=== PATIENT | female | born 1990 | race Caucasian/White ===

== ENCOUNTER 2017-10-26 23:37 | Emergency (ER) | payer MEDICAID ==
[~2017-10-26] VITALS: Ht 175.3 cm; Wt 77.3 kg
[~2017-10-26 23:37] MED LIST: AMOXICILLIN 50500 MG PO; BUPROPRION; BUSPIRONE; CEPHALEXIN500 M1 PO; MOTRIN 800800 MG/TAB PO; NORCO 325 MG-51 TA1 PO; NORCO 325 MG-51 TAB PO; ORTHO TRI-CYCLE1 TA1 PO; PEN-VEE K500 MG PO; PERCOCET 325 MG1 TA2 PO; PRENATAL1 TA1 PO; XANAX0.5 MG PO
[2017-10-27 00:30] VITALS: BP 112/70
== END 2017-10-27 00:30 | disposition short-term general hospital (02) ==
LOC: ED 23:37
DX: O80 Encounter for full-term uncomplicated delivery (principal); Z3A.40 40 weeks gestation of pregnancy; Z37.0 Single live birth

== ENCOUNTER 2018-05-10 21:50 | Emergency (ER) | payer SELFPAY ==
[~2018-05-10] VITALS: Ht 177.8 cm; Wt 74.5 kg
[2018-05-10] MEDS ORDERED: SPRINTEC 35 MCG1 TAB PO (22:09)
[2018-05-10] MEDS ORDERED: ZOLOFT 50MG50 MG PO (22:10)
[2018-05-10 22:46] LABS: EOS # 0.2 (0.04-0.40); EOS % 2.7 % (1.0-5.0); HEMATOCRIT 38.3 % (37.0-47.0); HEMOGLOBIN 12.6 g/dL (12.5-16.0); LYMPH# 3.1 (1.50-4.00); MEAN CELL VOLUME 91 fl (78-100); MEAN CORPUSCULAR HEMOGLOBIN 30 pg (27-31); MEAN CORPUSCULAR HGB CONC 33 g/dL (33-37); MEAN PLATELET VOLUME 11.3 fl (7.4-10.4); MONO # 0.6 (0.20-0.80); PLATELET COUNT 217 K/mm3 (130-400); RED BLOOD COUNT 4.21 M/mm3 (4.10-5.30); RED CELL DISTRIBUTION WIDTH 13.9 % (11.5-14.5); WHITE BLOOD COUNT 7.9 K/mm3 (4.8-10.8)
[2018-05-10 22:52] LABS: BUN/CREATININE RATIO 14.4 (6.0-26.0); CALCIUM 8.5 mg/dL (8.4-10.2); POTASSIUM 4.1 mmol/L (3.6-5.0)
[2018-05-10 23:20] VITALS: BP 118/78
== END 2018-05-10 23:20 | disposition home or self-care (01) ==
LOC: ED 21:50
PROVIDERS: Family Medicine
DX: N92.0 Excessive and frequent menstruation with regular cycle (principal)

== ENCOUNTER 2018-07-08 13:18 | Emergency (ER) | payer SELFPAY ==
[~2018-07-08 13:18] MED LIST changes: +SPRINTEC 35 MCG1 TAB PO; +ZOLOFT 50MG50 MG PO
[2018-07-08 13:46] LABS: HEMATOCRIT 37.9 % (37.0-47.0); HEMOGLOBIN 12.7 g/dL (12.5-16.0); MEAN CELL VOLUME 90 fl (78-100); MEAN CORPUSCULAR HEMOGLOBIN 30 pg (27-31); MEAN CORPUSCULAR HGB CONC 34 g/dL (33-37); MEAN PLATELET VOLUME 10.8 fl (7.4-10.4); PLATELET COUNT 221 K/mm3 (130-400); RED BLOOD COUNT 4.23 M/mm3 (4.10-5.30); RED CELL DISTRIBUTION WIDTH 13.8 % (11.5-14.5); WHITE BLOOD COUNT 13.9 K/mm3 (4.8-10.8)
[2018-07-08 14:03] LABS: CALCIUM 8.2 mg/dL (8.4-10.2); POTASSIUM 3.5 mmol/L (3.6-5.0)
[2018-07-08 14:19] LABS: LYMPHOCYTE 5 % (20-51); MONOCYTE 3 % (3-10); NEUTROPHILS 92 % (42-75)
[2018-07-08] MEDS ORDERED: ALBUTEROL2.5 MG/3 M IH (15:02)
[2018-07-08] MEDS ORDERED: IBU800 M2 PO (15:02)
[2018-07-08] MEDS ORDERED: MUCINEX 60600 MG/TA1 PO (15:02)
[2018-07-08] MEDS ORDERED: LEVAQUIN 750MG750 M1 PO (15:02)
[2018-07-08 15:26] VITALS: BP 104/62
== END 2018-07-08 15:33 | disposition home or self-care (01) ==
LOC: ED 13:18
PROVIDERS: Physician Assistant
DX: J18.9 Pneumonia, unspecified organism (principal); F17.210 Nicotine dependence, cigarettes, uncomplicated
CPT/HCPCS: J7030

== ENCOUNTER 2019-03-26 15:44 | Emergency (ER) | payer SELFPAY ==
[~2019-03-26] VITALS: Ht 175.3 cm; Wt 75.0 kg
[~2019-03-26 15:44] MED LIST changes: +ALBUTEROL2.5 MG/3 M IH; +IBU800 M2 PO; +LEVAQUIN 750MG750 M1 PO; +MUCINEX 60600 MG/TA1 PO
[2019-03-26] MEDS ORDERED: AMOXIL500 M1 PO (16:15)
[2019-03-26 16:25] VITALS: BP 100/66
== END 2019-03-26 16:27 | disposition home or self-care (01) ==
LOC: ED 15:44
DX: K08.89 Other specified disorders of teeth and supporting structures (principal); F41.9 Anxiety disorder, unspecified; F32.9 Major depressive disorder, single episode, unspecified; F17.210 Nicotine dependence, cigarettes, uncomplicated

== ENCOUNTER 2019-05-03 10:28 | Emergency (ER) | payer SELFPAY ==
[~2019-05-03 10:28] MED LIST changes: +AMOXIL500 M1 PO
[2019-05-03 11:11] LABS: ALBUMIN 3.6 g/dL (3.5-5.0); EOS # 0.1 (0.04-0.40); EOS % 1.1 % (1.0-5.0); HEMATOCRIT 36.6 % (37.0-47.0); HEMOGLOBIN 12.1 g/dL (12.5-16.0); LYMPH# 2.2 (1.50-4.00); MEAN CELL VOLUME 91 fl (78-100); MEAN CORPUSCULAR HEMOGLOBIN 30 pg (27-31); MEAN CORPUSCULAR HGB CONC 33 g/dL (33-37); MEAN PLATELET VOLUME 10.8 fl (7.4-10.4); MONO # 0.7 (0.20-0.80); NEU # 8.7 (1.40-6.50); PLATELET COUNT 273 K/mm3 (130-400); POTASSIUM 3.9 mmol/L (3.5-5.1); RED BLOOD COUNT 4.01 M/mm3 (4.10-5.30); RED CELL DISTRIBUTION WIDTH 13.4 % (11.5-14.5); WHITE BLOOD COUNT 11.7 K/mm3 (4.8-10.8)
[2019-05-03 11:13] LABS: TOTAL PROTEIN 6.4 g/dL (6.4-8.3)
[2019-05-03 11:15] LABS: CALCIUM 8.8 mg/dL (8.3-10.5); TOTAL BILIRUBIN 0.4 mg/dL (0.2-1.2)
[2019-05-03 12:28] LABS: HEMATOCRIT 33.2 % (37.0-47.0); HEMOGLOBIN 10.7 g/dL (12.5-16.0)
[2019-05-03 12:41] VITALS: BP 102/68
== END 2019-05-03 12:54 | disposition short-term general hospital (02) ==
LOC: ED 10:28
PROVIDERS: Nurse Practitioner Primary Care
DX: O03.9 Complete or unspecified spontaneous abortion without complication (principal); F17.210 Nicotine dependence, cigarettes, uncomplicated
CPT/HCPCS: J2270; J2405; J7030

== ENCOUNTER 2019-10-30 19:28 | Emergency (ER) | payer SELFPAY ==
[~2019-10-30] VITALS: Ht 170.2 cm; Wt 68.2 kg
[2019-10-30] MEDS ORDERED: KETOROLAC10 MG PO (20:15)
[2019-10-30] MEDS ORDERED: CLEOCIN HCL150 M1 PO (20:15)
[2019-10-30] MEDS ORDERED: NORCO 325 MG-51 TA1 PO (20:15)
[2019-10-30 20:35] VITALS: BP 120/78
== END 2019-10-30 20:35 | disposition home or self-care (01) ==
LOC: ED 19:28
DX: K04.7 Periapical abscess without sinus (principal)
CPT/HCPCS: J0696; J1885

== ENCOUNTER 2019-11-12 14:30 | Emergency (ER) | payer SELFPAY ==
[~2019-11-12] VITALS: Ht 175.3 cm; Wt 79.5 kg
[~2019-11-12 14:30] MED LIST changes: +CLEOCIN HCL150 M1 PO; +KETOROLAC10 MG PO
[2019-11-12 14:38] VITALS: BP 99/61
[2019-11-12] MEDS ORDERED: PHENERGAN 25 TA25 MG PO (15:20)
== END 2019-11-12 15:25 | disposition home or self-care (01) ==
LOC: ED 14:30
DX: R11.2 Nausea with vomiting, unspecified (principal); R19.7 Diarrhea, unspecified; F17.210 Nicotine dependence, cigarettes, uncomplicated
CPT/HCPCS: J2550

== ENCOUNTER 2020-01-13 20:30 | Emergency (ER) | payer MEDICAID ==
[~2020-01-13 20:30] MED LIST changes: +PHENERGAN 25 TA25 MG PO
[2020-01-13] MEDS ORDERED: NORCO 325 MG-51 TA1 PO (22:08)
[2020-01-13] MEDS ORDERED: AUGMENTIN 875-1 EAC1 PO (22:08)
[2020-01-13 22:32] VITALS: BP 131/86
== END 2020-01-13 22:32 | disposition home or self-care (01) ==
LOC: ED 20:30
DX: K05.219 Aggressive periodontitis, localized, unspecified severity (principal); K02.9 Dental caries, unspecified; F17.210 Nicotine dependence, cigarettes, uncomplicated; Z88.6 Allergy status to analgesic agent
CPT/HCPCS: J0696; J1885

== ENCOUNTER → 2020-04-07 | Outpatient (CLI) | payer MEDICAID ==
[~2020-04-07] MED LIST changes: +AUGMENTIN 875-1 EAC1 PO
== END ==
LOC: RAD 18:57
DX: S82.61XA Displaced fracture of lateral malleolus of right fibula, initial encounter for closed fracture (principal)

== ENCOUNTER → 2020-06-30 | Outpatient (CLI) | payer MEDICAID | LOC: RAD 18:12 | DX: M25.561 Pain in right knee (principal); M25.461 Effusion, right knee ==

== ENCOUNTER 2022-05-01 18:20 | Emergency (ER) | payer MEDICAID ==
[~2022-05-01] VITALS: Ht 170.2 cm; Wt 93.2 kg
[2022-05-01] MEDS ORDERED: ESTARYLLA 35 MC1 TAB PO (18:42)
[2022-05-01 19:07] LABS: BASO # 0.03 K/mm3 (0.02-0.10); EOS # 0.15 K/mm3 (0.04-0.40); EOS % 1.3 % (1.0-5.0); HEMATOCRIT 42.6 % (37.0-47.0); LYMPH# 2.55 K/mm3 (1.50-4.00); MEAN CELL VOLUME 95 fl (78-100); MEAN CORPUSCULAR HEMOGLOBIN 31 pg (27-31); MEAN CORPUSCULAR HGB CONC 33 g/dL (33-37); MEAN PLATELET VOLUME 9.9 fl (7.4-10.4); NEU # 7.97 K/mm3 (1.40-6.50); PLATELET COUNT 262 K/mm3 (130-400); RED CELL DISTRIBUTION WIDTH 12.5 % (11.5-14.5); WHITE BLOOD COUNT 11.3 K/mm3 (4.8-10.8)
[2022-05-01 19:19] LABS: SODIUM 139 mmol/L (136-145)
[2022-05-01 19:20] LABS: CALCIUM 8.8 mg/dL (8.3-10.5)
[2022-05-01 19:21] LABS: GLUCOSE 82 mg/dL (65-105); TOTAL PROTEIN 7.8 g/dL (6.4-8.3)
[2022-05-01 19:22] LABS: CARBON DIOXIDE 23 mmol/L (22-29)
[2022-05-01 19:23] LABS: TOTAL BILIRUBIN 0.4 mg/dL (0.2-1.2)
[2022-05-01 19:26] LABS: AST-SGOT 19 U/L (5-34)
[2022-05-01 19:28] LABS: ALT/SGPT 9 U/L (0-55); LIPASE 13 U/L (8-78)
[2022-05-01] MEDS ORDERED: PROTONIX TR40 M1 PO (19:42)
[2022-05-01 19:58] VITALS: BP 125/77
[2022-05-01 20:20] LABS: TROPONIN-I < 0.030 ng/mL (<0.030)
== END 2022-05-01 19:58 | disposition home or self-care (01) ==
LOC: ED 18:20
PROVIDERS: Physician Assistant
DX: K21.9 Gastro-esophageal reflux disease without esophagitis (principal); F41.9 Anxiety disorder, unspecified; F17.200 Nicotine dependence, unspecified, uncomplicated; Z28.310 Unvaccinated for COVID-19

== ENCOUNTER → 2024-10-19 | Outpatient (REF) | payer OTHER, MEDICAID ==
[~2024-10-19] MED LIST changes: +ESTARYLLA 35 MC1 TAB PO; +PROTONIX TR40 M1 PO
== END ==
LOC: LAB 13:29
DX: R50.9 Fever, unspecified (principal)

== ENCOUNTER → 2024-11-27 | Outpatient (CLI) | payer OTHER, MEDICAID | LOC: RAD 15:38 | DX: M25.561 Pain in right knee (principal) ==